=== PATIENT | male | born 1995 | race Two or more races ===

== ENCOUNTER 2018-09-12 04:21 | Emergency (ER) | payer OTHER ==
[~2018-09-12] VITALS: Ht 170.2 cm; Wt 90.7 kg
[2018-09-12 04:31] VITALS: BP 128/77
[2018-09-12] MEDS ORDERED: IPRATROPIUM BROM 0.5 MG/2.5ML INH SOL NEB ONE (04:45)
[2018-09-12] MEDS ORDERED: ALBUTEROL SULF 2.5 MG/0.5ML(0.5%) NEB SOLN NEB ONE (04:45)
[2018-09-12] MEDS ORDERED: methylPREDNISolone SOD SUCC 125 MG/2 ML VL IM ONE (05:15)
== END 2018-09-12 05:53 | disposition home or self-care (01) ==
LOC: ER 04:21
DX: J40 Bronchitis, not specified as acute or chronic (principal)
CPT/HCPCS: 71046; 94640; 96372; 99283; J2930; J7611; J7644